=== PATIENT | female | born 1950 | race Caucasian/White ===

== ENCOUNTER → 2024-01-27 10:33 | Outpatient (REF) | payer MEDICARE, BC, SELFPAY ==
[2024-01-27 15:52] LABS: Blood Urea Nitrogen 22 mg/dl (7-17); Calcium 9.4 mg/dl (8.4-10.2); Carbon Dioxide 34 mmol/L (22-30); Chloride 99 mmol/L (98-107); Glucose 92 mg/dl (70-99); NT-proBNP 151 pg/ml; Potassium 3.6 mmol/L (3.5-5.1); Sodium 140 mmol/L (135-145); eGFR > 60.00
== END ==
LOC: HWLAB 10:33
PROVIDERS: ATTENDING PHYSICIAN Physician Assistant; FAMILY PHYSICIAN Nurse Practitioner Adult Health
DX: I42.2 Other hypertrophic cardiomyopathy (principal)
CPT/HCPCS: 36415; 80048; 83880

== ENCOUNTER → 2024-03-09 07:21 | Outpatient (REF) | payer MEDICARE, BC, SELFPAY | LOC: DHCBS HW 07:21 | PROVIDERS: ATTENDING PHYSICIAN Internal Medicine Cardiovascular Disease; FAMILY PHYSICIAN Nurse Practitioner Adult Health | DX: I51.7 Cardiomegaly (principal) | CPT/HCPCS: 93306 ==

== ENCOUNTER 2025-11-11 19:53 | Emergency (ER) | payer MEDICARE, BC, SELFPAY ==
[2025-11-11 19:55] VITALS: BP 155/97
[2025-11-11 20:54] LABS: Hematocrit 41.3 % (37.0-47.0); Hemoglobin 13.6 g/dL (12.0-16.0); Mean Corp Hgb Conc. 32.9 g/dL (33.0-37.0); Mean Corpuscular Volume 84.5 fL (81.0-99.0); Platelet Count 249 10^3/uL (130-400); Red Cell Dist. Width 13.6 % (11.5-14.5)
[2025-11-11 21:08] LABS: Blood Urea Nitrogen 28 mg/dl (7-17); Carbon Dioxide 27 mmol/L (22-30); Chloride 106 mmol/L (98-107); Glucose 95 mg/dl (70-99); Magnesium 2.5 mg/dl (1.6-2.3); Potassium 4.3 mmol/L (3.5-5.1); Sodium 138 mmol/L (135-145); eGFR > 60.00
[2025-11-11 21:17] LABS: Calcium 10.0 mg/dl (8.4-10.2)
--- NOTE | 2025-11-11 22:28 | ED.CVA ---
Addendum entered and electronically signed by Nicholas Ram MD 11/12/25 15:13:
Physical exam addendum: right anterior cervical lymph node tender to palpation.
Right sided/jaw pain likely secondary to lymphadenopathy, reactive to tender ear canal
Original Note:
History of Present Illness
General
Chief Complaint: CVA/TIA Symptoms
Source: patient and family
Exam Limitations: none
Time Seen by Provider: 11/11/25 20:22
Nursing documentation reviewed up to this point in time: agreed with
Onset of Stroke Symptoms
Onset of symptoms known: Yes
Date of onset of symptoms: 11/11/25
Time of onset of symptoms: 08:30
History of Present Illness
History of Present Illness:
Patient presents to ED secondary to sudden onset of right facial droop, inability to fully close right eye, tearing in her right eye, along with numbness sensation in her right face, as if she received Novocain injection. Denies headache. Denies
dizziness. Denies blurred vision. Denies difficulty with speech. Denies difficulty swallowing. Denies weakness. Denies inability to ambulate. Denies previous history of similar symptoms. However, patient does report right ear fullness
sensation yesterday, which was evaluated by her physician who informed her that her ear 'appeared to be red'. Since then she has been experiencing increased pain in her ear as well as right side of her neck. Denies recent change in medications or
diet.
Past History
Past History
ED Past Medical History: Asthma, COPD, Hypercholesterolemia and Other
ED Past Surgical History: Other (ENT)
Social History
Tobacco: Non-smoker
Alcohol: Occasional
Drug: None
Personal:
Living: with family
Review of Systems
Review of Systems
Allergies reviewed?: Yes
All Other Systems: ROS reviewed and negative except as documented in HPI and ROS
Constitutional: Reports no symptoms
EENT: Reports other (ear pain)
Respiratory: Reports no symptoms
ABD/GI: Reports no symptoms
Musculoskeletal: Reports no symptoms
Skin: Reports no symptoms
Neurological: Reports numbness and other (facial droop)
Phy Exam
Physical Exam
Physical Exam:
Physical Exam
General: mild distress, not acutely ill. afebrile
Head: nc/at. eomi
R Ear: ulceration with tenderness noted along external canal. normal TM
Neck: supple. normal range of motion.
Heart: s1/s2 regular rate and rhythm
Lungs: no acute respiratory distress. clear bilaterally
Abdomen: normal bowel sounds. not tender.
Neuro: alert and oriented x 3. right facial droop. inability to fully close right eye or lift right eyebrow. decreased sensation over right face. normal speech. normal gait.
Skin: no rash
Psychiatric: well kept. interactive and cooperative
Extremities: no edema. no calf tenderness.
Course
Orders/Labs/Results
Orders:
Orders
11/11/25 20:40
CT Head W/o Iv Contrast Urgent
Comment:
Reason For Exam: right facial droop
11/11/25 20:44
Basic Metabolic Panel Urgent
Complete Blood Count/No Diff Urgent
Lyme Progressive Urgent
Magnesium Urgent
11/11/25 22:27
Amoxicillin 875 mg/Clav 125 mg [Augmentin 875 mg/125 mg] 1 tablet PO NOW STA
Prednisone [Deltasone] 60 mg PO NOW STA
Abnormal Lab Results
11/11/25
20:44
MCHC 32.9 L g/dL
(33.0-37.0)
BUN 28 H mg/dl
(7-17)
Magnesium 2.5 H mg/dl
(1.6-2.3)
11/11/25 20:44
11/11/25 20:44
Vital Signs
Initial and Last Documented VS:
Initial Vital Signs
Temp Pulse Resp BP Pulse Ox
98 F 86 16 155/97 99
11/11/25 19:55 11/11/25 19:55 11/11/25 19:55 11/11/25 19:55 11/11/25 19:55
Last Documented Vital Signs
Temp Pulse Resp BP Pulse Ox
98 F 82 21 155/97 97
11/11/25 19:55 11/11/25 22:15 11/11/25 22:15 11/11/25 19:55 11/11/25 22:29
MDM/Problems Addressed
MDM/Problems Addressed:
CT head: No acute findings.
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 Patient states that her right ear has had some findings, which was evaluated by her chinese instructor recently and was told that it may represent psoriasis. However, in light of worsening symptoms,
i.e. pain, patient will be started on Augmentin, with recommendation to contact her chinese instructor for reevaluation next week. In addition, patient advised only to follow-up with PCP next week as well, to be evaluated for her symptoms, including
potential second course of steroids, if symptoms persist. Patient expresses understanding at time of discharge, to the care of her family.
Lyme titer pending.
*Pulse Oximetry
SaO2: 97
Oxygen Mode of Delivery: Room air
Patient hypoxic: no
*Critical Care Note
Total Time (30-74mins, 75-104mins- exclusive of procedures): Not Applicable
ED Attending Note
-
Portions of this chart may have been created with voice recognition software.� Occasional wrong word or��sound alike� substitutions may have occurred due to the inherent limitations of voice recognition software.
Discharge Plan
Departure
Patient Disposition: Home (Routine Discharge)
Date of Disposition: 11/11/25
Time of Disposition: 22:29
Patient with high blood pressure during this ER visit?: Yes
Condition: Fair
Discharge Problem:
Bernard's palsy
Instructions: Bernard's Palsy (DC)
Prescriptions:
New
prednisone 20 mg tablet
60 mg PO DAILY 6 Days Qty: 18 0RF
amoxicillin-pot clavulanate 875-125 mg tablet
1 tab PO Q12H Qty: 13 0RF
No Action
fluticasone propion-salmeterol [Advair Diskus] 1 DISK blister with device
1 puff inhalation BID
montelukast 10 MG tablet
10 mg PO DAILY
Qvar 8.7 GM aerosol
2 puff IH BID
Co Q-10 300 MG capsule
300 mg PO DAILY
cholecalciferol (vitamin D3) [Vitamin D3] 1,000 UNIT tablet
4,000 unit PO DAILY
guaifenesin [Mucus Relief ER] 600 MG tablet extended release 12hr
800 mg PO BID
latanoprost 1 DROP drops
1 drp BOTH EYES HS
fexofenadine-pseudoephedrine [Alison-D 24 Hour] 1 EACH tablet extended release 24 hr
1 ea PO DAILY
diltiazem HCl [Cardizem] 120 MG tablet
120 mg PO BID
l-Lysine 1,000 MG Tab
1,000 mg PO DAILY
magnesium oxide 500 MG capsule
500 mg PO DAILY
turmeric root extract 500 MG capsule
500 mg PO HS
famotidine [Pepcid AC] 20 MG tablet
1 tab PO PRN PRN (Reason: indigestion)
albuterol sulfate 1 PUFF HFA aerosol inhaler
2 puff inhalation Q4 PRN (Reason: wheezing)
Magnesium Fizz-Plus 183 GM powder effervescent
1 dose PO HS
Patient Comments:
CALM EFFERVESCENT PACKET
Spiriva Respimat 4 GM mist
1 inh inhalation BID
ascorbic acid (vitamin C) [Vitamin C] 1,000 MG tablet
1 tab PO DAILY
azithromycin [Zithromax] 500 MG tablet
1 tab PO .QMWF
azelastine 1 SPRAY aerosol,spray
1 spray intranasal BID
Dupixent Syringe 200 MG/1.14 ML syringe
400 mg SQ .QOTHER WEEK
levothyroxine [Synthroid] 175 mcg Tablet
175 mcg PO DAILY
amlodipine 2.5 mg Tablet
2.5 mg PO DAILY
rosuvastatin [Crestor] 20 mg tablet
20 mg PO QPM Qty: 90 5RF
furosemide [Lasix] 40 mg tablet
40 mg PO DAILY Qty: 90 5RF
Referrals:
PRIVATE,PHYSICIAN [Family Provider, Internal Medicine]
Activity Restrictions/Additional Instructions:
As discussed, you must follow-up with your primary care physician and chinese instructor for re-evaluation, as soon as you return home.
Interventions
Interventions:
*Risk Screen - Suicide Last Done: 11/11/25 19:55
*General Assessment Last Done: 11/11/25 20:47
*Neglect/Abuse Screening Last Done: 11/11/25 19:55
*ED COVID-19 Vaccine History Last Done: 11/11/25 20:47
*ED Influenza Vaccine History Last Done: 11/11/25 20:47
[facility] Fall Risk Assessment Tool Last Done: 11/11/25 21:11
*Nursing Disposition Last Done: 11/11/25 22:50
ED- Pulmonary Assessment Last Done: 11/11/25 21:09
ED- Neurological Assessment Last Done: 11/11/25 21:09
ED- Cardiac Assessment Last Done: 11/11/25 21:09
ED Swallowing Screen Last Done: 11/11/25 21:09
Discharge Date and Time
Discharge Date/Time: 11/11/25 22:51
Print Language: GREEK
[2025-11-11] MEDS: AUGMENTIN 875 MG/125 MG 1 TABLET PO (22:36)
[2025-11-11] MEDS: DELTASONE 60 MG PO (22:36)
== END 2025-11-11 22:51 | disposition home or self-care (01) ==
LOC: EMR 19:53
PROVIDERS: EMERGENCY PHYSICIAN Emergency Medicine; REFERRING PHYSICIAN Internal Medicine Cardiovascular Disease
DX: G51.0 Bell's palsy (principal); E78.00 Pure hypercholesterolemia, unspecified; J44.89 Other specified chronic obstructive pulmonary disease
CPT/HCPCS: 99284; 70450; 80048; 83735; 85027; 86618